=== PATIENT | female | born 1980 | race Caucasian/White ===

== ENCOUNTER 2019-11-04 14:08 | Outpatient (RCR) | payer OTHER, SELFPAY | END 2019-11-30 00:01 | LOC: SPT 14:08 | PROVIDERS: Family Provider Physician Assistant; Visit Provider Physician Assistant | DX: M25.552 Pain in left hip (principal) | CPT/HCPCS: 97140; 97161; 97164; 97530 ×2 ==

== ENCOUNTER 2019-12-01 13:34 | Outpatient (RCR) | payer OTHER, SELFPAY | END 2019-12-31 23:59 | disposition home or self-care (01) | LOC: SPT 13:34 | PROVIDERS: Family Provider Physician Assistant; Visit Provider Physician Assistant | DX: M25.552 Pain in left hip (principal) | CPT/HCPCS: 97110; 97112; 97140; 97530 ==

== ENCOUNTER 2019-12-30 11:19 | Day surgery (SDC) | payer OTHER, SELFPAY ==
[2019-12-29 14:43] VITALS: BMI 15.6
[2019-12-30] VITALS (9 sets, daily range): BP systolic 112–146; BP diastolic 75–94; PULSE 56–84; RESP 18–23; TEMP 36.3–37.4; O2SAT 94–100
[2019-12-30] MEDS: sodium chloride 0.9% 1,000 ML 30 ML IV (12:05)
--- NOTE | 2019-12-30 12:17 | ANES.PREANES ---
Pre-Anesthetic Assessment Pre-Anesthetic Assessment: Height/Weight: Height 1.68 m Weight 43.998 kg Temp Pulse Resp BP Pulse Ox 99.3 F 72 18 120/75 96 12/30/19 11:52 12/30/19 11:52 12/30/19 11:52 12/30/19 11:52 12/30/19 11:52 Proposed Procedure: Operation Date: 12/30/19 12:45 Proposed Procedures p Laparoscopy poss open poss adhesiolysis(Not Applicable) - Tee Dye MD Last intake: Intake Last Liquid Date 12/29/19 Last Liquid Time 09:00 Last Solid Date 12/29/19 Last Solid Time 09:00 Social: Social History: Alcohol and Tobacco Exam: Pre-Anes Outpt Exam: alert, oriented x 3, clear to auscultation bilaterally and regular rate & rhythm Airway: Submandibular: WNL Cervical ROM: WNL MP: 1 Dentition: False (upper) History/ROS: No significant history except as noted Pulmonary: Pulmonary: None reported CV/HEM: CV/HEM: None reported : : None reported Hepatic: Hepatic: None reported GI: GI: PUD Metabolic: Metabolic: None reported Musc/skel: Musc/skel: None reported Neuropsych: Neuropsych: None reported Anesthetic Plan: ASA status: II Anesthesia: Anesthesia Evaluation and General Risk of > 500 ml blood loss (7ml/kg in children): No Meds/Allergies Current Medications: Current Medications Generic Name Dose Route Start Last Admin Trade Name Freq PRN Reason Stop Dose Admin Sodium Chloride 1,000 mls @ 30 ml s/hr 12/30/19 11:30 12/30/19 12:05 Sodium Chloride 0.9% IV 12/31/19 11:29 30 mls/hr .Q24H ALEKS Administration Data Anesthesia Cardiac Studies: No Data to Display
[2019-12-30] MEDS: ceFAZolin 1,000 MG in sodium chloride 0.9% (plus) 50 ML 100 MG IV (12:59)
--- NOTE | 2019-12-30 13:03 | PM.HPUD ---
H&P update H&P Update: DATE OF SURGERY/PROCEDURE: 12/30/19 DATE H&P PERFORMED: 12/21/19 H&P UPDATE INFORMATION: H&P completed within last 30 days and No changes to prior documentation PLANNED PROCEDURE: Operation Date: 12/30/19 12:45 Proposed Procedures p Laparoscopy poss open poss adhesiolysis(Not Applicable) - Tee Dye MD Full H&P Medications/Allergies: Current Medications: Current Medications Generic Name Dose Route Start Last Admin Trade Name Freq PRN Reason Stop Dose Admin Sodium Chloride 1,000 mls @ 30 ml s/hr 12/30/19 11:30 12/30/19 12:05 Sodium Chloride 0.9% IV 12/31/19 11:29 30 mls/hr .Q24H ALEKS Administration
--- NOTE | 2019-12-30 13:26 | PM.OP ---
Operative Report Date of procedure: December 30, 2019 Pre-op Diagnosis: Left lower quadrant pain, suspected adhesions. Post-op diagnosis: same Procedure Done: Laparoscopic adhesiolysis. Pathology: none sent Surgeon: Tee Dye Anesthesia: General Estimated blood loss (mL): 5 Complications: None. Condition: stable Disposition: PACU Procedure: The patient was brought to the Operating Room and was placed in a supine position on the Operating Room table. General endotracheal anesthesia was induced. The abdomen was prepped and draped in a sterile fashion. A small vertical incision was carried out just above the umbilicus and the patient's previous midline scar. Blunt dissection was carried out down to the fascia, which was grasped with a Christi clamp. A stay suture of 0 Vicryl was placed on either side of the midline and the midline fascia was incised. The underlying peritoneum was opened bluntly and the Benjamin port was placed directly into the peritoneal cavity and was held in place with the inflatable balloon. The peritoneal cavity was insufflated with carbon dioxide. The laparoscope was used to inspect the abdominal cavity. The patient had some light adhesions from the sigmoid colon to the pelvic sidewall along the course of the ilioinguinal nerve/posterior to the internal inguinal ring. No abnormalities were seen in the upper abdomen. A 5 mm port was placed in the right lower quadrant under direct vision and a [place] dissector was used to take down the adhesions. Another adhesion was found deep in the pelvis on the left side to the anterior portion of the sigmoid colon and this was taken down. No other evidence of adhesions or endometriosis was seen. The Posadas port was removed from the abdominal wall and the sutures of Vicryl were tied to each other at the umbilicus. An additional [id number] suture of 0 Vicryl was placed, closing the fascial defect so that it was airtight. The remaining port was removed from the abdominal wall and the pneumoperitoneum was evacuated in the process. All skin incisions were closed using inverted interrupted sutures of 4-0 Vicryl. Benzoin and Steri-Strips were placed over the incisions and sterile Band-Aids followed. The patient was taken to the recovery room in stable condition postoperatively.
--- NOTE | 2019-12-30 13:31 | SUR.PHASEI ---
1330 PATIENT TO OPS VIA GURNEY FROM OR AT THIS TIME. RR EVEN AND UNLABORED. PWD. SPO2 100% ON SIMPLE MASK AT 8L. PATIENT RESPONDS TO VERBAL STIMULI. PATIENT RATES PAIN 8/10 TO LOWER ABDOMEN. 2 INCISION, CDI.
[2019-12-30] MEDS: fentaNYL 50 mcg/mL INJ 2mL IVP (13:34)
--- NOTE | 2019-12-30 13:55 | SUR.PHASEI ---
1351 PATIENT TO OPS AT THIS TIME. NO DISTRESS. PWD. A/OX3. RR EVEN AND UNLABORED. 2 STABS TO ABDOMEN, CDI. PATIENT TOLERATING ICE CHIPS.
== END 2019-12-30 14:45 | disposition home or self-care (01) ==
PROVIDERS: Family Provider Physician Assistant; PCP Physician Assistant; Visit Provider Surgery
PROC: (CPT 49320; principal; 2019-12-30 12:45)
DX: K66.0 Peritoneal adhesions (postprocedural) (postinfection) (principal); F17.210 Nicotine dependence, cigarettes, uncomplicated; Z82.49 Family history of ischemic heart disease and other diseases of the circulatory system; Z87.11 Personal history of peptic ulcer disease
CPT/HCPCS: 44180; 12345; J0690; J1885; J2001; J2250; J2704; J2710; J3010; J3490; J7030

== ENCOUNTER 2020-01-01 06:00 | Outpatient (RCR) | payer OTHER, SELFPAY | END 2020-01-29 23:59 | disposition home or self-care (01) | LOC: SPT 06:00 | PROVIDERS: Family Provider Physician Assistant; PCP Physician Assistant; Visit Provider Physician Assistant | DX: Z01.89 Encounter for other specified special examinations (principal) ==

== ENCOUNTER 2020-03-01 06:00 | Outpatient (RCR) | payer OTHER, SELFPAY | END 2020-03-02 23:00 | disposition home or self-care (01) | LOC: SPT 06:00 | PROVIDERS: Family Provider Physician Assistant; PCP Physician Assistant; Visit Provider Physician Assistant | DX: M25.552 Pain in left hip (principal) | CPT/HCPCS: 97140; 97164 ==

== ENCOUNTER 2024-10-14 08:44 | Outpatient (CLI) | payer OTHER, SELFPAY ==
--- NOTE | 2024-10-14 08:57 | XRR_ITS ---
PROCEDURE INFORMATION: Exam: XR Cervical Spine Exam date and time: 10/14/2024 9:19 AM Age: 44 years old Clinical indication: Patient HX: Drainage, pain and pressure in left ear and head x 4 yrs; Additional info: Otalgia, left ear TECHNIQUE: Imaging protocol: Radiologic exam of the cervical spine. Views: 4 or 5 views. COMPARISON: [place] [id number] 10/14/2024 9:19 AM FINDINGS: Bones/joints: Normal. No acute fracture. Normal alignment. No instability noted on the flexion or extension view. Soft tissues: Unremarkable. Lung apices are normal. XR/XR cervical spine 4-5V [id number] IMPRESSION: No acute findings.
--- NOTE | 2024-10-14 08:57 | XRR_ITS ---
PROCEDURE INFORMATION: Exam: XR Temporomandibular Joints, Open and Closed Mouth Exam date and time: 10/14/2024 9:19 AM Age: 44 years old Clinical indication: Other: Otalgia, left ear; Patient HX: Drainage, pain and pressure in left ear and head x 4 yrs TECHNIQUE: Imaging protocol: XR of the bilateral temporomandibular joints, open and closed mouth views. COMPARISON: CR XR cervical spine 4-5V [id number] 10/14/2024 9:19 AM FINDINGS: Sinuses: Well aerated. Bones/joints: No fracture. No definite TMJ dislocation is appreciated. Soft tissues: Unremarkable. XR/[place] [id number] IMPRESSION: Unremarkable.
== END 2024-10-14 08:45 | disposition home or self-care (01) ==
PROVIDERS: Family Provider Physician Assistant; PCP Family Medicine; Visit Provider Otolaryngology
DX: H92.02 Otalgia, left ear (principal)
CPT/HCPCS: 70330; 72050

== ENCOUNTER 2025-01-12 09:45 | Outpatient (CLI) | payer OTHER, SELFPAY ==
--- NOTE | 2025-01-12 10:00 | CT_ITS ---
WS: [id number] CT HEAD WITH AND WITHOUT CONTRAST HISTORY: H65.03 - Acute serous otitis media, bilateral TECHNIQUE: Noncontrast 3.0 mm axial images obtained from the vertex to the skull base. Additional imaging performed at 2.5 mm axial images status post IV contrast. Bone and soft tissue windows are reviewed. All CT scans at [facility] use at least one of these dose optimization techniques: automated exposure control; mA and/or kV adjustment per patient size (includes targeted exams where dose is matched to clinical indication); or iterative reconstruction. CONTRAST: Omnipaque 350; 100 mL IV. DLP: 1959.38 mGy.cm COMPARISON: None available. No acute intracranial hemorrhage, edema or midline shift. Very mild small vessel disease and volume loss. No large infarct. No enhancing mass or vascular malformations identified. Dural venous sinuses are normally enhancing. Visualized ekl[place] of [place] is unremarkable. Paranasal sinuses as visualized: Clear. Mastoid air cells: Well aerated RIGHT mastoid air cells. No soft tissue along the internal or external RIGHT auditory canal. Coalescence and sclerosis of the LEFT mastoid air cells. Possible dehiscence of the tegmen tympani. There is loss of the normal anterior cortex of the temporal bone. Increased soft tissue in the mastoid antrum and epitympanum. No obvious extension into the temporal lobe. LEFT inner ear ossicles are difficult to visualize which may be due to the thicker slices for CT of the head. Calvarium and scalp: Intact. CT/CT head wo/w con [id number] IMPRESSION: 1. No acute intracranial hemorrhage or edema. 2. Abnormal LEFT mastoid air cells with possible dehiscence of the temporal cayden ne cortex. Extensive soft tissue surrounding the inner ear ossicles which are p oorly visualized and may be eroded. There is soft tissue distending the mastoid antrum and epitympanum. Recommend follow-up dedicated temporal bone CT. MRI br ain with and without contrast also recommended to better evaluate for possible invasion into the brain. Findings suggest chronic otomastoiditis. Recommend fol low-up with ENT.
[2025-01-12] MEDS: iohexol 350 mg/mL 500 mL Btl (per mL) IV (10:05)
== END 2025-01-12 09:46 | disposition home or self-care (01) ==
LOC: RAD 09:46
PROVIDERS: Family Provider Physician Assistant; PCP Family Medicine; Visit Provider Family Medicine
DX: H65.03 Acute serous otitis media, bilateral (principal); R42 Dizziness and giddiness; R55 Syncope and collapse; R93.0 Abnormal findings on diagnostic imaging of skull and head, not elsewhere classified
CPT/HCPCS: 70470